=== PATIENT | female | born 1980 | race African-American/Black ===

== ENCOUNTER 2017-12-19 11:12 | Emergency (ER) | payer BC ==
[~2017-12-19] VITALS: Ht 165.1 cm; Wt 55.0 kg
[2017-12-19 11:16] VITALS: BP 105/63; PULSE 90; RESP 14; TEMP 97.9; O2SAT 98
[2017-12-19] MEDS ORDERED: KETOROLAC TROMETHAMINE 60 MG/2 ML (IM) VIAL IM ONE (11:45)
--- NOTE | 2017-12-19 11:50 | PD ---
HPI Chief Complaint: Abdominal Pain Time Seen by Provider: 11:27 Travel History International Travel<30 days: No Contact w/Intl Traveler<30days: No Traveled to known affect area: No History of Present Illness HPI 37yo F with no PMH presents to the ED with c/o menstrual cramps today. Said it is day 3 of her period and she normally gets morphine when she goes to the ED in [place] for her menstrual cramps. Said she took an ibuprofen earlier and pain has actually improved significantly now. Denies any fever, chest pain, sob, n/v , vaginal discharge, dysuria. Pt had right oopherectomy because of ovarian cyst. PFSH Social History Tobacco Use: No Allergies-Medications (Allergen,Severity, Reaction): Coded Allergies: No Known Allergies (Verified Allergy, Unknown, 12/19/17) Reported Meds & Prescriptions Reported Meds & Active Scripts Active Macrobid (Nitrofurantoin Monoh/Nitrofur Macro) 100 Mg Cap 100 Mg PO BID 5 Days Naproxen 250 Mg Tab 250 Mg PO BID 5 Days Review of Systems Except as stated in HPI: all other systems reviewed are Neg Physical Exam Narrative GEN: 37yo F not in distress. SKIN: Warm and dry. HEAD: Normocephalic, atraumatic. CV: S1, S2. Lungs: CTA B/L, equal breath sounds. Abd: soft, NT/ND. No rebound tenderness or guarding. Ext: No edema. Neuro: No focal neurologic deficits. Data Data Last Documented VS Vital Signs Date Time Temp Pulse Resp B/P (MAP) Pulse Ox O2 Delivery O2 Flow Rate FiO2 12/19/17 13:32 12/19/17 11:29 16 12/19/17 11:16 97.9 90 98 Room Air Orders Orders Ketorolac Inj (Toradol Inj) (12/19/17 11:45) Ed Urine Pregnancytest Poc (12/19/17 11:44) Urinalysis - C+S If Indicated (12/19/17 11:44) Urine Culture (12/19/17 12:00) Ed Discharge Order (12/19/17 13:21) Labs Laboratory Tests Test 12/19/17 12:00 Urine Color YELLOW Urine Turbidity CLEAR Urine pH 6.5 Urine Specific [place] 1.030 Urine Protein 30 mg/dL Urine Glucose (UA) NEG mg/dL Urine Ketones NEG mg/dL Urine Occult Blood LARGE Urine Nitrite NEG Urine Bilirubin NEG Urine Urobilinogen LESS THAN 2.0 MG/DL Urine Leukocyte Esterase NEG Urine RBC /hpf Urine WBC 15 /hpf Urine Squamous Epithelial Cells 2 /hpf Urine Mucus MOD /lpf Microscopic Urinalysis Comment CULTURE INDICATED MDM Medical Decision Making Medical Screen Exam Complete: Yes Emergency Medical Condition: Yes Differential Diagnosis Menstrual cramps vs. vs. UTI Narrative Course 37yo F here with menstrual cramps. Pt has no abdominal tenderness on exam. Given toradol and is still pain free and feels good to go home. Urine negative. UA showed large blood. WBC 15. Pt has no dysuria but said she does have increased urinary frequency for the last 2 days so will cover with antibiotics. No systemic complaints and well appearing. Return precautions given. Diagnosis Primary Impression: UTI (urinary tract infection) Qualified Codes: N39.0 - Urinary tract infection, site not specified; R31.9 - Hematuria, unspecified Additional Impression: Menstrual cramps Patient Instructions: General Instructions Departure Forms: Tests/Procedures Additional Instructions: Please follow up with gynecology if symptoms persist. Return to the ED if symptoms worsen. Med/Other Pt SpecificInfo: Prescription(s) given Scripts Nitrofurantoin Monohydrate Macrocrystals (Macrobid) 100 Mg Cap 100 MG PO BID for Infection for 5 Days, #10 CAP 0 Refills Prov: Hattie Carter DO 12/19/17 Naproxen (Naproxen) 250 Mg Tab 250 MG PO BID for 5 Days, #10 TAB 0 Refills Prov: Hattie Carter DO 12/19/17 Disposition: 01 DISCHARGE HOME Condition: Stable Hattie Carter DO Dec 19, 2017 11:50
[2017-12-19 13:04] LABS: BILIRUBIN, URINE NEG (NEG); BLOOD, URINE LARGE (NEG); GLUCOSE,URINE NEG (NEG); KETONE, URINE NEG (NEG); MUCUS URINE MOD /lpf (OCC); NITRITE,URINE NEG (NEG); PH, URINE 6.5 (5.0-8.5); SQUAMOUS EPITHELIAL CELL URINE 2 /hpf (0-5); URINE COLOR YELLOW (YELLW/STRAW); URINE LEUKOCYTE ESTERASE NEG (NEG)
[2017-12-19] MEDS ORDERED: MACR100C2 PO (13:21)
[2017-12-19] MEDS ORDERED: NAPR250T4 PO (13:21)
== END 2017-12-19 13:32 | disposition home or self-care (01) ==
LOC: NEPD 11:12
DX: N39.0 Urinary tract infection, site not specified (principal); R31.9 Hematuria, unspecified; N94.6 Dysmenorrhea, unspecified
CPT/HCPCS: 81001; 84703; 87086; 96372; 99283; J1885